=== PATIENT | female | born 1975 | race Caucasian/White ===

== ENCOUNTER → 2019-10-18 | Day surgery (SDC) | payer BC, OTHER ==
[2019-10-14 09:34] LABS: BASOPHILS # (AUTO) 0.1 (0.0-0.1); BASOPHILS % 0.7 % (0.0-1.0); EOSINOPHILS # (AUTO) 0.3 (0.0-0.4); EOSINOPHILS % 2.7 % (0.0-6.0); HEMATOCRIT 43.1 % (34.2-44.1); HEMOGLOBIN 14.3 g/dL (12.0-16.0); LYMPHOCYTES # (AUTO) 2.1 (1.0-3.2); MEAN CORPUSCULAR HEMOGLOBIN 31.1 pg (28-32); MEAN CORPUSCULAR HGB CONC 33.2 g/dL (31-35); MEAN CORPUSCULAR VOLUME 93.7 fL (81-99); MONOCYTES # (AUTO) 0.7 (0.2-0.8); MONOCYTES % 6.6 % (4.4-11.3); NEUTROPHILS # (AUTO) 7.9 (2.1-6.9); NEUTROPHILS % 70.6 % (38.7-80.0); PLATELET COUNT 227 x10e3/uL (140-360); RED CELL DISTRIBUTION WIDTH 13.2 % (11.7-14.4)
[~2019-10-18] MED LIST: ACETAZOLAMIDE250 MG PO; ACIPHEX20 MG PO; CYCLOBENZAPRINE5 MG PO; DIAMOX PO; EFFEXOR ER PO; FENTANYL CITRATE/PF 100MCG/2 ML INJ ONE; LEVAQUIN500 MG PO; METOPROLOL SUCC50 MG PO; METRONIDAZOLE500 MG; MIDAZOLAM HCL 2 MG/2 ML VIAL ONE; ONDANSETRON HCL INJ 2MG/ML 2ML 2 MG/ML VIAL ONE; PEPCID AC10 MG PO; PRISTIQ ER100 MG PO; PROPOFOL IV EMULSION 10 MG/ML 20 ML VIAL ONE; VENLAFAXINE HCL75 M2 PO; VERAPAMIL ER120 MG PO; Z.0.BENTYL20 MG PO; Z.0.DEXILANT60 MG PO; Z.0.EFFEXOR XR150 MG PO; Z.0.NEXIUM40 MG PO; Z.0.SUCRALFATE1 GM PO
[2019-10-18 13:50] VITALS: BP 134/65
--- NOTE | 2019-10-18 14:56 | Operative Report ---
DATE OF PROCEDURE: 10/18/2019 SURGEON: Emmanuel Lomas MD PROCEDURES: EGD with esophageal dilatation and biopsies, and colonoscopy with polypectomy and biopsies. INDICATIONS FOR EGD: Dysphagia/odynophagia, bloating. INDICATIONS FOR COLONOSCOPY: Surveillance colonoscopy, personal history of colon polyps. MEDICATIONS: The patient was done under MAC, please see anesthesiologist's note. PROCEDURE IN DETAIL: With the patient in the left lateral decubitus position, a flexible fiberoptic Olympus gastroscope was introduced into the esophagus under direct visualization without any difficulty. There was some patchy erythema noted in distal esophagus. There was a mild stricture noted at the GE junction, that was dilated to size 52-[place] Be. The scope was then advanced with ease into the stomach and mucosa overlying the antrum and the body revealed some patchy erythema and low-grade to moderate edema, and biopsies were obtained and sent to stain for H. pylori. Pylorus was of normal contour and shape, it was intubated with ease and the scope was advanced all the way to the second portion of the duodenum. Biopsies were obtained from the proximal second portion and the duodenal bulb to rule out sprue. The scope was then withdrawn back into the stomach and retroflexed, mucosa overlying the fundus and the cardia appeared to be within normal limits. The scope was then straightened out, it was subsequently withdrawn. The patient tolerated the procedure well. IMPRESSION: 1. Distal esophagitis, mild. 2. Esophageal stricture dilated to size 52-[place] Be. 3. Gastritis, biopsied, biopsies sent to stain for H. pylori. 4. Rule out sprue. PLAN: 1. Follow up histology. 2. Increase AcipHex to 20 mg one p.o. a.c. b.i.d. DESCRIPTION OF PROCEDURE: The patient was then turned around after adequate lubrication of the anal canal, the flexible fiberoptic Olympus colonoscope was inserted into the rectum with ease and advanced all the way to the cecum. The colon was excessively tortuous, spastic and irritable, and suboptimally examined. Whatever was visualized, the mucosa overlying the cecum appeared to be within normal limits. There was an approximately 8 mm submucosal nodule with yellowish hue biopsied. Scattered diverticular disease was noted pretty much throughout the colon. Two minute polyps were removed per cold biopsy forceps from the descending colon. Other than for diverticular disease in the sigmoid, the rest of the descending appeared to be within normal limits. The rectum was grossly within normal limits. The scope was then retroflexed into the distal rectum. Small internal hemorrhoids were noted, none of which was actively bleeding. The scope was then straightened out, it was subsequently withdrawn. The patient tolerated the procedure well. IMPRESSION: 1. Colon excessively tortuous, spastic and irritable, suboptimally visualized. 2. Ascending colon nodule, approximately 8 mm in size, submucosal with yellowish hue suspicious for lipoma, biopsied. 3. Diverticulosis. 4. Descending colon polyps, minute, x2, removed per cold biopsy forceps. 5. Internal hemorrhoids, none actively bleeding. PLAN: 1. Follow up histology. 2. Initiate high-fiber, low-fat diet. 3. Initiate high-fiber supplement. 4. The patient might benefit from a followup colonoscopy in 3 to 5 [address]. Emmanuel Lomas MD [facility] [place] [place] /[id number] cc: Rosa Hampton MD
== END | disposition home or self-care (01) ==
LOC: OR 09:09
PROVIDERS: ATTEND Internal Medicine Gastroenterology
DX: K22.2 Esophageal obstruction (principal); K63.5 Polyp of colon; K29.60 Other gastritis without bleeding; K58.9 Irritable bowel syndrome, unspecified; K63.89 Other specified diseases of intestine; K20.8 Other esophagitis; K59.00 Constipation, unspecified; K57.30 Diverticulosis of large intestine without perforation or abscess without bleeding; K64.8 Other hemorrhoids; F41.9 Anxiety disorder, unspecified; Z88.8 Allergy status to other drugs, medicaments and biological substances; Z01.810 Encounter for preprocedural cardiovascular examination; Z01.812 Encounter for preprocedural laboratory examination; Z11.59 Encounter for screening for other viral diseases
CPT/HCPCS: 36415; 43239; 43450; 45380; 81025; 85025; 93005; J2405; J2704; U0002; J2250; J3010